=== PATIENT | female | born 1990 | race Two or more races ===

== ENCOUNTER 2020-07-25 09:45 | Emergency (ER) | payer OTHER ==
[~2020-07-25] VITALS: Ht 165.1 cm; Wt 74.8 kg
[~2020-07-25 09:45] MED LIST: PRILOSEC20 MG PO
== END 2020-07-25 14:21 | disposition home or self-care (01) ==
LOC: ER 09:45
DX: K29.70 Gastritis, unspecified, without bleeding (principal)

== ENCOUNTER 2024-03-04 11:25 | Emergency (ER) | payer OTHER ==
[~2024-03-04] VITALS: Ht 157.5 cm; Wt 77.1 kg
[2024-03-04] MEDS ORDERED: GUAIFENESIN/DEXTROMETHORPHAN 10ML BLIST.PACK PO ONE (12:00)
[2024-03-04] MEDS ORDERED: DEXAMETHASONE SODIUM PHOSPHATE 4 MG/ML VIAL IM ONE (12:00)
[2024-03-04 13:10] LABS: HEMATOCRIT 41.3 % (36.0-45.00); HEMOGLOBIN 14.1 g/dL (12.0-15.00); MEAN CELL VOLUME 89.2 fL (80.00-100.00); MEAN CORPUSCULAR HEMOGLOBIN 30.4 pg (27.00-32.0); PLATELET COUNT 304 K/uL (150-450); RED BLOOD COUNT 4.63 M/uL (4.00-6.00); RED CELL DISTRIBUTION WIDTH 13.5 % (11.5-14.5)
[2024-03-04 13:40] LABS: URINE APPEARANCE Clear; URINE BILIRRUBIN Negative (NEGATIVE); URINE BLOOD Negative; URINE COLOR Yellow; URINE GLUCOSE Negative (NEGATIVE); URINE KETONE Negative (NEGATIVE); URINE LEUKOCYTE Negative; URINE NITRATE Negative; URINE PROTEIN Negative (NEGATIVE)
[2024-03-04 13:43] LABS: URINE BACTERIA 13.4 uL (0.0-1933); URINE EPITHELIAL CELLS 5.3 uL (0.0-38.8); URINE RBC 19.2 uL (0.0-20.8); URINE WBC 3.7 uL (0.0-23.2)
[2024-03-04 13:55] LABS: ALBUMIN 3.5 gm/dL (3.4-5.0); BILIRUBIN TOTAL 0.13 mg/dL (0.3-1.2); CALCIUM 9.1 mg/dL (8.5-10.1); CREATININE SERUM 0.72 mg/dL (0.55-1.02); GFR 92.18; GLOBULINA 4.5 G/DL (2.4-3.5); POTASSIUM 3.73 mEq/L (3.5-5.1)
[2024-03-04] MEDS ORDERED: TUSNEL LIQUID178 ML PO (14:00)
[2024-03-04] MEDS ORDERED: OSEL75CA PO (14:00)
== END 2024-03-04 14:15 | disposition home or self-care (01) ==
LOC: ER 11:27
PROVIDERS: General Practice
DX: R53.81 Other malaise (principal); J10.1 Influenza due to other identified influenza virus with other respiratory manifestations

== ENCOUNTER 2024-07-22 13:17 | Inpatient (IN) | payer OTHER ==
[~2024-07-22] VITALS: Ht 165.1 cm; Wt 74.4 kg
[~2024-07-22 13:17] MED LIST changes: +OSEL75CA PO; +TUSNEL LIQUID178 ML PO
--- NOTE | 2024-07-22 13:57 | NUR ---
SE RECIBE PACIENTE FEMENINA ALERTA Y ORIENTADA X3 REFIERE VENIR POR QUEJA PRINCIPAL DE DOLOR ABDOMINAL OPRESIVO Y SENSACION DE ARDOR DESDE EL ANA LILIA DE WADE.
[2024-07-22] MEDS ORDERED: FAMOTIDINE/PF 20 MG/2 ML VIAL IV ONE (15:45)
[2024-07-22] MEDS ORDERED: 0.9 % SODIUM CHLORIDE 500 ML IV ONE (15:45)
[2024-07-22] MEDS ORDERED: FAMOTIDINE/PF 20 MG/2 ML VIAL ONE (16:05)
--- NOTE | 2024-07-22 16:19 | NUR ---
PTE ALERTA Y ORIENTADA X3 SE ORIENTA SOBRE TRATAMIENTO SE CANALIZA CIELO DE EDEMA NI ERITEMA SE KIERSTEN MUESTRAS DE ROSALIA BAJO MEDIDAS ASEPTICAS ADECUADAS PTE EN ESPERA DE CT. TRABAJADA POR MARLENA MIX
[2024-07-22 16:20] LABS: HEMATOCRIT 39.2 % (36.0-45.00); HEMOGLOBIN 13.7 g/dL (12.0-15.00); MEAN CELL VOLUME 88.5 fL (80.00-100.00); MEAN CORPUSCULAR HEMOGLOBIN 30.9 pg (27.00-32.0); MEAN CORPUSCULAR HGB CONC 34.9 g/dl (32.0-36.0); PLATELET COUNT 301 K/uL (150-450); RED BLOOD COUNT 4.43 M/uL (4.00-6.00); RED CELL DISTRIBUTION WIDTH 12.9 % (11.5-14.5)
[2024-07-22 16:46] LABS: INR 0.97; PARTIAL THROMBOPLASTIN TIME 28.8 SECONDS (22.0-34.0); PROTHROMBIN TIME 10.6 SECONDS (9.0-11.5)
[2024-07-22 16:51] LABS: ALBUMIN 3.7 gm/dL (3.4-5.0); BILIRUBIN TOTAL 0.43 mg/dL (0.3-1.2); CALCIUM 9.6 mg/dL (8.5-10.1); CREATININE SERUM 0.57 mg/dL (0.55-1.02); GFR 120.7; GLOBULINA 3.9 G/DL (2.4-3.5); POTASSIUM 3.82 mEq/L (3.5-5.1); TOTAL PROTEIN 7.6 gm/dL (6.4-8.2)
[2024-07-22 17:00] LABS: PH,URINE 5.5 (5.0-8.0); URINE APPEARANCE Clear; URINE BILIRRUBIN Negative (NEGATIVE); URINE BLOOD Negative; URINE COLOR Dark Yellow; URINE GLUCOSE Negative (NEGATIVE); URINE KETONE 15 (NEGATIVE); URINE LEUKOCYTE Trace; URINE NITRATE Negative; URINE PROTEIN Negative (NEGATIVE)
[2024-07-22 17:04] LABS: URINE BACTERIA 479.7 uL (0.0-1933); URINE EPITHELIAL CELLS 51.2 uL (0.0-38.8); URINE RBC 39.7 uL (0.0-20.8); URINE WBC 26.2 uL (0.0-23.2)
[2024-07-22 17:26] LABS: URINE CAST 0.44 uL (0.0-1.40); URINE MUCUS MODERATE
[2024-07-22] MEDS ORDERED: PIPERACILLIN/TAZOBACTAM SODIUM 3.375 GM VIAL IV ONE (19:30)
[2024-07-22] MEDS ORDERED: ONDANSETRON HCL 4 MG in 0.9 % SODIUM CHLORIDE 50 ML IV PRN (20:15)
[2024-07-22] MEDS ORDERED: ACETAMINOPHEN 500 MG GEL..CAP PO PRN (20:15)
[2024-07-22] MEDS ORDERED: MORPHINE SULFATE 2 MG/ML SYRINGE IV PRN (20:15)
[2024-07-22] MEDS ORDERED: 0.9 % SODIUM CHLORIDE 1,000 ML IV SCH (20:15)
[2024-07-22 22:30] LABS: COVID-19 AG NEGATIVE (NEGATIVE)
[2024-07-23] MEDS ORDERED: PIPERACILLIN/TAZOBACTAM SODIUM 3.375 GM in DEXTROSE 5 % IN WATER 100 ML IV SCH
[2024-07-23 02:49] VITALS: BP 103/70; O2SAT 96
[2024-07-23 08:01] VITALS: BP 95/60; O2SAT 97
[2024-07-23] MEDS ORDERED: FAMOTIDINE/PF 20 MG in 0.9 % SODIUM CHLORIDE 8 ML IV PUSH SCH (09:00)
[2024-07-23] MEDS ORDERED: PIPERACILLIN/TAZOBACTAM SODIUM 3.375 GM VIAL IV ONE (10:19)
[2024-07-23] MEDS ORDERED: MORPHINE SULFATE 4 MG/ML VIAL IV ONE (14:20)
[2024-07-23] MEDS ORDERED: MORPHINE SULFATE 4 MG/ML CARTRIDGE IV STA (17:32)
[2024-07-23] MEDS ORDERED: MORPHINE SULFATE 4 MG/ML CARTRIDGE IV PRN (17:45)
[2024-07-24 02:19] VITALS: BP 116/78; O2SAT 98
[2024-07-24 08:35] VITALS: BP 113/77; O2SAT 96
[2024-07-24 17:50] LABS: HEMATOCRIT 39.1 % (36.0-45.00); HEMOGLOBIN 12.9 g/dL (12.0-15.00); MEAN CELL VOLUME 89.7 fL (80.00-100.00); MEAN CORPUSCULAR HEMOGLOBIN 29.6 pg (27.00-32.0); MEAN CORPUSCULAR HGB CONC 32.9 g/dl (32.0-36.0); PLATELET COUNT 310 K/uL (150-450); RED BLOOD COUNT 4.36 M/uL (4.00-6.00); RED CELL DISTRIBUTION WIDTH 12.4 % (11.5-14.5)
[2024-07-24 18:16] LABS: CALCIUM 8.9 mg/dL (8.5-10.1); CREATININE SERUM 0.52 mg/dL (0.55-1.02); GFR 134.19; POTASSIUM 4.39 mEq/L (3.5-5.1)
[2024-07-24 18:42] VITALS: BP 112/74
[2024-07-25 03:11] VITALS: BP 114/78; O2SAT 98
[2024-07-25 19:09] VITALS: BP 90/59
[2024-07-26 02:10] VITALS: BP 99/65; O2SAT 97
[2024-07-26 09:16] VITALS: BP 103/70
== END 2024-07-26 10:52 | disposition home or self-care (01) | DRG 399 ==
LOC: ER 13:18 → MEDJ 20:14
PROVIDERS: General Practice; Internal Medicine; Specialist; ADMIT Student in an Organized Health Care Education/Training Program; ATTEND Student in an Organized Health Care Education/Training Program
PROC: BW21YZZ Computerized Tomography (CT Scan) of Abdomen and Pelvis using Other Contrast (ICD-10-PCS; 2024-07-22)
PROC: 0DTJ4ZZ Resection of Appendix, Percutaneous Endoscopic Approach (ICD-10-PCS; principal; 2024-07-23 15:00)
DX: K35.80 Unspecified acute appendicitis (principal); R10.31 Right lower quadrant pain

== ENCOUNTER 2025-01-13 11:35 | Inpatient (IN) | payer OTHER ==
[~2025-01-13] VITALS: Ht 165.1 cm; Wt 77.1 kg
[2025-01-13] MEDS ORDERED: KETOROLAC TROMETHAMINE 30 MG VIAL IV ONE (13:00)
[2025-01-13] MEDS ORDERED: 0.9 % SODIUM CHLORIDE 1,000 ML IV SCH (13:00)
[2025-01-13] MEDS ORDERED: FAMOTIDINE/PF 20 MG/2 ML VIAL IV ONE (13:00)
[2025-01-13] MEDS ORDERED: CEFTRIAXONE SODIUM 1,000 MG VIAL IV ONE (13:00)
[2025-01-13] MEDS ORDERED: KETOROLAC TROMETHAMINE 30 MG VIAL ONE (13:12)
[2025-01-13] MEDS ORDERED: CEFTRIAXONE SODIUM 1,000 MG VIAL ONE (13:12)
[2025-01-13] MEDS ORDERED: FAMOTIDINE/PF 20 MG/2 ML VIAL ONE (13:12)
[2025-01-13 13:53] LABS: BASO % 0.1 % (0.1-1.2); EOS # 0.07 (0.04-0.54); EOS % 0.5 % (0.7-7.0); LYMPH # 1.44 (1.18-3.74); LYMPH % 10.7 % (19.3-53.1); MEAN PLATELET VOLUME 9.30 fl (9.4-12.4); MONO # 0.63 (0.24-0.82); MONO % 4.7 % (4.7-12.5); NEUT # 11.23 (1.56-6.13); NEUT % 83.7 % (34.0-71.1); RED CELL DISTRIBUTION WIDTH 12.2 % (11.6-14.4)
[2025-01-13 13:56] LABS: ERYTHROCYTE SEDIMENTATION RATE 34 mm/hr (0-20)
[2025-01-13 14:30] LABS: ALT/SGPT 44.0 U/L (12-78); AST/SGOT 26.0 U/L (15-37); BILIRUBIN TOTAL 0.66 mg/dL (0.3-1.2); BUN CREA RATIO 12.0 (7.0-25.0); CREATININE SERUM 0.69 mg/dL (0.55-1.02); GFR 96.82; GLOBULINA 3.7 G/DL (2.4-3.5); GLUCOSE FASTING 85.0 mg/dL (65-100); OSMOLALITY SERUM 275.0 MOSM/KG (275-295)
[2025-01-13 16:15] LABS: URINE APPEARANCE Clear; URINE BILIRRUBIN Negative (NEGATIVE); URINE BLOOD Negative; URINE COLOR Yellow; URINE GLUCOSE Negative (NEGATIVE); URINE KETONE 15 (NEGATIVE); URINE LEUKOCYTE Negative; URINE NITRATE Negative; URINE PROTEIN Negative (NEGATIVE); URINE UROBILINOGEN 1.0 E.U./dl
[2025-01-13 16:20] LABS: URINE BACTERIA 2913.5 uL (0.0-1933); URINE EPITHELIAL CELLS 28.3 uL (0.0-38.8); URINE RBC 66.5 uL (0.0-20.8); URINE WBC 16.1 uL (0.0-23.2)
[2025-01-13 16:25] LABS: URINE CAST 0.58 uL (0.0-1.40)
[2025-01-13] MEDS ORDERED: MORPHINE SULFATE 4 MG/ML CARTRIDGE IV PRN ×2 (20:00→20:23)
[2025-01-13] MEDS ORDERED: PIPERACILLIN/TAZOBACTAM SODIUM 3.375 GM VIAL IV ONE ×2 (20:00→20:34)
[2025-01-13] MEDS ORDERED: PIPERACILLIN/TAZOBACTAM SODIUM 3.375 GM in 0.9 % SODIUM CHLORIDE 100 ML IV SCH (20:21)
[2025-01-13] MEDS ORDERED: ACETAMINOPHEN 325 MG TABLET PO PRN (20:30)
[2025-01-13] MEDS ORDERED: ONDANSETRON HCL 4 MG in 0.9 % SODIUM CHLORIDE 50 ML IV PRN (20:30)
[2025-01-13 20:43] VITALS: BP 100/60
[2025-01-13 21:41] LABS: INR 1.05
[2025-01-13 22:35] VITALS: BP 99/68; O2SAT 99
[2025-01-14 01:26] VITALS: BP 113/71; O2SAT 99
[2025-01-14 06:36] LABS: BASO % 0.1 % (0.1-1.2); EOS # 0.19 (0.04-0.54); EOS % 1.4 % (0.7-7.0); LYMPH # 0.99 (1.18-3.74); LYMPH % 7.1 % (19.3-53.1); MEAN PLATELET VOLUME 9.80 fl (9.4-12.4); MONO # 0.63 (0.24-0.82); MONO % 4.5 % (4.7-12.5); NEUT # 12.00 (1.56-6.13); NEUT % 86.5 % (34.0-71.1); RED CELL DISTRIBUTION WIDTH 12.5 % (11.6-14.4)
[2025-01-14 09:25] VITALS: BP 84/53; O2SAT 97
[2025-01-14] MEDS ORDERED: MORPHINE SULFATE 2 MG/ML SYRINGE IV PRN (10:15)
[2025-01-14] MEDS ORDERED: ACETAMINOPHEN 500 MG GEL..CAP PO PRN (10:15)
[2025-01-14 16:23] VITALS: BP 93/59; O2SAT 99
[2025-01-15 01:06] VITALS: BP 100/52; O2SAT 99
[2025-01-15 08:00] VITALS: BP 90/55; O2SAT 99
[2025-01-15 16:00] VITALS: BP 99/66; O2SAT 100
[2025-01-16 01:01] VITALS: BP 100/68; O2SAT 99
[2025-01-16 08:46] VITALS: BP 107/73; O2SAT 98
[2025-01-16 16:00] VITALS: BP 123/75; O2SAT 92
[2025-01-17 00:30] VITALS: BP 112/77; O2SAT 97
[2025-01-17 08:08] VITALS: BP 96/59; O2SAT 98
[2025-01-17 15:00] VITALS: BP 97/67; O2SAT 99
[2025-01-18] VITALS: BP 95/62; O2SAT 97
[2025-01-18 08:12] VITALS: BP 96/64; O2SAT 98
[2025-01-18 10:42] LABS: BASO % 0.4 % (0.1-1.2); EOS # 0.12 (0.04-0.54); EOS % 2.6 % (0.7-7.0); LYMPH # 1.40 (1.18-3.74); LYMPH % 30.4 % (19.3-53.1); MEAN PLATELET VOLUME 9.70 fl (9.4-12.4); MONO # 0.33 (0.24-0.82); MONO % 7.2 % (4.7-12.5); NEUT # 2.71 (1.56-6.13); NEUT % 59.0 % (34.0-71.1); RED CELL DISTRIBUTION WIDTH 12.4 % (11.6-14.4)
[2025-01-18 12:15] LABS: ALT/SGPT 16.0 U/L (12-78); AST/SGOT 13.0 U/L (15-37); BILIRUBIN TOTAL 0.38 mg/dL (0.3-1.2); BUN CREA RATIO 4.0 (7.0-25.0); CREATININE SERUM 0.45 mg/dL (0.55-1.02); GFR 158.56; GLOBULINA 3.3 G/DL (2.4-3.5); GLUCOSE FASTING 64.0 mg/dL (65-100); OSMOLALITY SERUM 279.0 MOSM/KG (275-295)
[2025-01-18 16:43] VITALS: BP 93/56; O2SAT 99
[2025-01-19 00:30] VITALS: BP 101/70; O2SAT 100
[2025-01-19 08:00] VITALS: BP 104/69; O2SAT 95
== END 2025-01-19 18:00 | disposition home or self-care (01) | DRG 392 ==
LOC: ER 11:35 → SURH 20:39
PROVIDERS: General Practice; Internal Medicine Infectious Disease; Student in an Organized Health Care Education/Training Program; ADMIT Internal Medicine; ATTEND Internal Medicine
PROC: BW21ZZZ Computerized Tomography (CT Scan) of Abdomen and Pelvis (ICD-10-PCS; principal; 2025-01-13)
DX: K57.20 Diverticulitis of large intestine with perforation and abscess without bleeding (principal); D72.829 Elevated white blood cell count, unspecified; R10.30 Lower abdominal pain, unspecified